=== PATIENT | male | born 1960 | race Caucasian/White ===

== ENCOUNTER 2021-11-02 07:29 | Emergency (ER) | payer OTHER, SELFPAY ==
[2021-11-02 07:31] VITALS: BP 157/90; PULSE 72; RESP 17; TEMP 36.3; O2SAT 98; BMI 28.7
--- NOTE | 2021-11-02 07:49 | CT_ITS ---
STUDY: CT ABDOMEN AND PELVIS WITH CONTRAST REASON FOR EXAM: Male, 61 years old. Rectal bleeding, hx chondrosarcoma resection RADIATION DOSAGE (If Supplied By Facility): CTDIvol = ( 16.82 ) mGy, DLP = ( 2627.41 ) mGycm TECHNIQUE: Transaxial images were obtained from the dome of the diaphragm to the symphysis pubis without oral contrast. IV 100mL Isovue-300 was administered. Sagittal and coronal images were reconstructed. Individualized dose optimization techniques were used for this CT. COMPARISON: Comparison is made with prior study dated 10/12/2012. FINDINGS: The visualized lung bases are unremarkable. The visualized portions of the heart are within normal limits. There is decreased attenuation of the liver consistent with steatosis. Stable 1 cm cyst in the midportion of the right lobe of the liver. Normal gallbladder and extrahepatic biliary system. Normal spleen. Normal pancreas. Normal bilateral adrenal glands. Normal right kidney. Normal left kidney. Normal visualized stomach. Normal small intestine. There are multiple colonic diverticula consistent with diverticulosis. The appendix is visualized and appears normal. There is scattered atherosclerotic calcification of the abdominal aorta, without a demonstrated aneurysm. Normal inferior vena cava. Normal retroperitoneum. The urinary bladder is seen in the upper medial aspect of the left thigh. There is diffuse wall thickening of the urinary bladder. Incidental note is made of a small left hydrocele. Heterogeneous appearance of the prostate. The prostate measures 4.7 cm x 4.8 cm. The patient is status post left hemipelvectomy. The left side of the bony pelvis as well as the proximal left femur have been resected. There is a stable left lateral abdominal wall hernia. CT/Abdomen/Pelvis W IV Cont ONLY IMPRESSION: Status post left nephrectomy with stable left lateral abdominal wall hernia. The urinary bladder is seen in the medial proximal aspect of the left thigh. Sigmoid diverticulosis. Electronically Signed: Jose Ervin MD at 9:00 EDT ,
--- NOTE | 2021-11-02 07:50 | EX.ED.DYSGE1 ---
HPI History of Present Illness Chief Complaint: GI Bleed Informant: patient Onset/Context/Timing Onset: Days (3) Context: Gradual Onset Timing: Intermittent Quality: BRB w/ clots Location: rectum Current Severity: Moderate Maximum Severity: Moderate Worsened by: n/a Relieved by: n/a Associated Symptoms Associated Symptoms: none Narrative Narrative: Patient presents with rectal bleeding with clots for the past couple days, this morning he passed a large clot, he was trying to pass it like he was having a bowel movement, suggesting to him that it was coming from further up. He feels nothing that indicates a hemorrhoid to him, no perianal pain. No abdominal pain, nausea, vomiting, symptoms of anemia/lightheadedness or weakness. No chest pain or shortness of breath. Never had this before. States he had a screening colonoscopy more than 10 years ago that was unremarkable from what he remembers. 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 He states this was 40 years ago. Since then he has had some issues having bowel movements, where sometimes he feels like he needs to go but it is difficult to get things out but he usually has no major issues. This is the first time he is ever had bleeding like this, he takes no antiplatelet or anticoagulant medications. Prior similar symptoms: No Recent Illness/Hospitalization: No [facility] Medical History (Updated 11/02/21 @ 09:[address] Umang Porter MD) Chondrosarcoma of left femur Hypertension Allergy/AdvReac Type Severity Reaction Status Date / Time No Known Allergies Allergy Verified 11/02/21 07:30 Social History Smoking Status: Unknown if ever smoked ROS ROS ED Constitutional Constitutional ED: Denies chills or fever(s) Eyes Eyes: Denies change in vision or diplopia ENT ENT ED: Denies rhinorrhea or sore throat Cardiovascular Cardiovascular: Denies chest pain or palpitations Respiratory/Chest Respiratory/Chest: Denies cough or dyspnea Gastrointestinal Gastrointestinal: Reports as per HPI and hematochezia; Denies abdominal pain, diarrhea, hematemesis, hemorrhoids, melena, nausea or vomiting Genitourinary Genitourinary ED: Denies dysuria or hematuria Musculoskeletal Musculoskeletal: Denies back pain or neck pain Integumentary Denies abscess or rash Neurologic Neurologic: Denies headache(s), paresthesias or weakness Psychiatric Psychiatric: Denies anxiety or suicidal thoughts EXAM Physical Exam Const Vital Signs: 11/02/21 07:31 11/02/21 08:47 Temperature 97.3 F L Temperature Source Temporal Pulse Rate 72 Pulse Rate [Lying] 61 Pulse Rate [Sitting (for 1 minute prior to obtaining)] 65 Pulse Rate [Standing (for 1 minute prior to obtaining)] 67 Respiratory Rate 17 Blood Pressure 157/90 H Blood Pressure [Lying] 126/70 H Blood Pressure [Sitting (for 1 minute prior to obtaining)] 125/82 H Blood Pressure [Standing (for 1 minute prior to obtaining)] 145/95 H Blood Pressure Mean 112 Blood Pressure Mean [Lying] 88 Blood Pressure Mean [Sitting (for 1 minute prior to obtaining)] 96 Blood Pressure Mean [Standing (for 1 minute prior to obtaining)] 111 Pulse Ox 98 Oxygen Delivery Method Room Air Positive well nourished and well developed General Appearance ED: well developed and NAD HEENT Reports moist mucous membranes normocephalic and atraumatic Eyes PERRL and EOMs intact bilaterally Neck full ROM and supple Resp normal respiratory effort and clear to auscultation bilaterally Cardio regular rate, regular rhythm and no murmurs Rate: Negative for tachycardic GI non-tender and non-distended Auscultation: normoactive bowel sounds Palpation: soft Back/Spine no CVA tenderness General Back: other FROM Extremity Extremity Narrative: Status post left hip disarticulation, otherwise extremity inspection normal General Extremety ED: Negative for edema, pulses abnormal or tenderness General Extremity: Negative for edema or pulses abnormal Neuro oriented x3, CN's II-XII intact bilaterally and no sensory deficits noted Sensorium / Orientation: awake and alert Motor Exam: strength 5/5 throughout Skin no rashes or lesions noted and no wounds MDM MDM MDM Narrative Medical decision making narrative: No records available on this patient including the colonoscopy that he states he had here 10 or more years ago. He has never been told he has diverticulosis. Primarily because I would like to know if he has that or if there are any anatomic issues that could be related to this related to his resection of the left hemipelvis due to his remote cancer, I obtained a CT of his abdomen/pelvis. It indeed shows diverticulosis, suspicious for the potential cause of his bleeding. The hernia that is noted on CT is I think simply a result of him having his left pelvis resected as a result of his remote cancer. He had a bowel movement here in the ER, it was basically all blood and quite a bit with some clots. His orthostatics are negative, his blood counts are good. He had a bowel movement here, it was brown stool surrounded on a small amount of blood no clots. He has been feeling fine. I attempted to talk to GI but Dr. Salazar is not available today. I spoke with Dr. Kyle who reviewed his CT and I spoke with him about his case, his recommendation for now would be to send him home on the compounded hydrocortisone/lidocaine suppositories that her pharmacy makes, which I called into our pharmacy for a 2-week supply, nightly. I discussed with the patient the possibility of this being diverticular bleeding but it is stable at this time, we will treat him empirically for internal hemorrhoids and proctitis, and if he has symptoms of anemia and worsening bleeding need to come back to the ER otherwise following up for further evaluation and possible colonoscopy. All questions were answered at bedside he is comfortable with that plan. Lab Data Attestation: I reviewed the patient's lab results. Labs: Laboratory Results - last 24 hr 11/02/21 11/02/21 08:00 08:00 WBC 4.9 RBC 5.20 Hgb 15.2 Hct 44.6 MCV 85.8 MCH 29.2 MCHC 34.1 RDW Std Deviation 40.6 RDW Coeff of Tessa 13.2 Plt Count 213 MPV 10.5 Immature Gran % (Auto) 0.200 Neut % (Auto) 66.7 Lymph % (Auto) 20.2 Mcclain % (Auto) 8.7 Eos % (Auto) 3.2 Baso % (Auto) 1.0 Absolute Neuts (auto) 3.3 Absolute Lymphs (auto) 1.00 Nucleated RBC % 0 Sodium 139 Potassium 3.7 Chloride 105 Carbon Dioxide 31.0 Anion Gap 3 L BUN 18 Creatinine 0.83 Estim Creat Clear Calc 96.50 Est GFR (MDRD) Af Amer 121 Est GFR (MDRD) Non-Af 100 BUN/Creatinine Ratio 21.7 H Glucose 114 H Calcium 9.4 Radiography Diagnostic Testing: Clinical Impression(s) from Imaging Studies Abdomen/Pelvis CT 11/02/21 07:49 IMPRESSION: Status post left nephrectomy with stable left lateral abdominal wall hernia. The urinary bladder is seen in the medial proximal aspect of the left thigh. Sigmoid diverticulosis. Electronically Signed: Jose Ervin MD at 9:00 EDT , Discharge Plan Triage Chief Complaint: GI Bleed ED Provider: Umang Porter Dx/Rx/DC Orders Clinical Impression: Acute lower gastrointestinal bleeding, Diverticulosis Instructions: ED Lower GI Bleeding (Stable), ED Diverticulosis Primary Care Provider: Care Physician,No Primary Referrals: Homero Kyle MD [STAFF PHYSICIAN] - (Call for follow-up appointment) FriendJoseph DO [STAFF PHYSICIAN] - (Gastroenterology, in case you need another GI contact) Care Physician,No Primary [Primary Care Provider] - Activity Restrictions/Additional Instructions: Prescription was called in for you at the [facility] retail pharmacy, pick it up before you go home. Do not take any aspirin or ibuprofen while you are having this bleeding as it could make it worse. Disposition Disposition: Home, Self Care
[2021-11-02 08:11] LABS: Absolute Neutrophil Count 3.3 X10^3/uL (2.0-7.7); Basophil# 0.05 X10^3/uL; Eosinophil# 0.16 X10^3/uL; Eosinophils% 3.2 % (0-5); Hematocrit 44.6 % (40-54); Hemoglobin 15.2 g/dL (13.0-16.5); Lymphocyte % 20.2 % (19-41); Mean Corp Hgb Conc 34.1 g/dL (32-36); Mean Corpuscular Hgb 29.2 pg (27.0-32.0); Mean Corpuscular Volume 85.8 fL (80-94); Mean Platelet Vol. 10.5 fl (6.2-12.0); Monocyte# 0.43 X10^3/uL; Monocyte% 8.7 % (0-10); NRBC Flagged by Analyzer 0 % (0-5); Neutrophil # 3.29 X10^3/uL (2.7-7.7); Neutrophil % 66.7 % (47-70); Platelet Count 213 K/mm3 (150-450); RBC Distribution Width CV 13.2 % (11.6-14.6); RBC Distribution Width SD 40.6 fl (35.1-43.9); White Blood Count 4.9 K/mm3 (4.4-11.0)
[2021-11-02 08:20] LABS: Anion Gap 3 (5-15); BUN 18 mg/dL (7-18); BUN/Creat Ratio 21.7 RATIO (10-20); Calcium,Total 9.4 mg/dL (8.5-10.1); Chloride 105 mmol/L (98-107); Creatinine, Serum 0.83 mg/dL (0.70-1.30); EST Glomerular Filtration Rate 100 mL/min (>60); Est Glom Filt Rate - Afr Amer 121 mL/min (>60); Glucose 114 mg/dL (74-106); Potassium 3.7 mmol/L (3.5-5.1); Sodium Level 139 mmol/L (136-145)
[2021-11-02 08:47] VITALS: BP 125/82; BP 126/70; BP 145/95; PULSE 61; PULSE 65; PULSE 67
--- NOTE | 2021-11-02 12:50 | CM.ED ---
SW Note Referral Source: Case Find Referral Reason: No Primary Care Physician (PCP) SW reviewed chart and noted that patient has no PCP. SW provided patient with list of [facility] and [facility] Physician List for reference. SW also provided patient with handout ?Where to go When?. No other issues or concerns voiced at this time. SW remains available for any additional needs. Plan: Provided patient with PCP information Kate BNADA
== END 2021-11-02 13:22 | disposition home or self-care (01) ==
PROVIDERS: Emergency Provider Emergency Medicine; Visit Provider Emergency Medicine
DX: K57.31 Diverticulosis of large intestine without perforation or abscess with bleeding (principal); Z89.612 Acquired absence of left leg above knee; I10 Essential (primary) hypertension; K64.8 Other hemorrhoids; Z85.830 Personal history of malignant neoplasm of bone
CPT/HCPCS: 74177; 80048; 85025; 96360; 96361; 99284; J7030; Q9967; A4216

== ENCOUNTER → 2023-05-16 | Outpatient (CLI) | payer OTHER, SELFPAY ==
--- NOTE | 2023-05-16 12:51 | MRI_ITS ---
ACR Level 3 findings have been noted. An addendum which confirms receipt of the report will follow. STUDY: MR PROSTATE GLAND/ PELVIS WITH T WITHOUT CONTRAST REASON FOR EXAM: Male, 62 years old. ELEVATED PSA, PSA 6.75 TECHNIQUE: Standardized fat and water weighted pulse sequences were obtained in all 3 orthogonal planes, pre-and post contrast administration. IV 18cc clariscan was administered for the contrast portion of the examination. COMPARISON: CT of abdomen and pelvis dated November 02, 2021 FINDINGS: Prostate gland volume/size: The left testicle was not seen on this study. The prostate gland is moderately enlarged measuring 6.78 x 5.89 cm and is diffusely heterogeneous and nodular in appearance. Anterior fibromuscular stroma: Within normal limits Peripheral zone: Thinned and diffusely heterogeneous bilaterally without a discrete nodule. Central zone: Diffusely heterogeneous and hyperplastic with intermixed solid and cystic lesions. Transitional zone: Diffusely heterogeneous and hyperplastic with intermixed solid low signal nodules intermixed with small cystic lesions. There are 2 focal and moderately enhancing nodules in the right and left side of the transitional zone, measuring 2.84 cm and 2.36 cm respectively. No demonstrated mixed pattern of bright and dark diffusion weighted and ADC map signal consistent with malignancy. There is diffuse enhancement of the hyperplastic parenchyma surrounding these predominate nodules throughout the prostate gland. Prostate capsule: Intact without evidence of a mass or nodule extending beyond the confines of the capsule. Seminal vesicles: Normal. Pelvic sidewall lymphadenopathy: No demonstrated pelvic sidewall lymphadenopathy Bony structures: Prior left hemipelvic bony surgical amputation/resection. Altered anatomy with loops of bowel and the bladder extending into the left lower pelvic and upper thigh region junction. Fatty atrophy is seen in the muscle fibers of this region. A small to moderate sized right testicular hydrocele is present. Mildly to moderately diffusely thickened bladder wall with mild trabeculation which could be related to a neurogenic bladder or chronic nonspecified cystitis. Normal visualized small intestine. Normal visualized colon. There is no pelvic fluid. There is no pelvic mass lesion or lymphadenopathy. Normal visualized pelvic arteries. No marrow edema or lytic or blastic lesions are seen in the remaining bony structures on the current study.. Normal abdominal wall. MRI/Pelvis W/WO Contrast IMPRESSION: 1. Diffusely heterogeneous and hyperplastic with intermixed solid low signal nodules intermixed with small cystic lesions throughout the transitional zones. There are 2 focal and moderately enhancing nodules in the right and left side of the transitional zone, measuring 2.84 cm and 2.36 cm respectively. No demonstrated mixed pattern of bright and dark diffusion weighted and ADC map signal consistent with malignancy. 2. PI-RADS 5: very high (clinically significant cancer is highly likely to be present) Reference information: Normal prostate tissue Benign prostatic hypertrophy cancer/tumor - low signal peripheral , transitional, and central zones malignancy appears as bright on DWI and low signal on ADC map Prostate imaging-reporting and data system (PI-RADS) PI-RADS 1: very low (clinically significant cancer is highly unlikely to be present) PI-RADS 2: low (clinically significant cancer is unlikely to be present) PI-RADS 3: intermediate (the presence of clinically significant cancer is equivocal) PI-RADS 4: high (clinically significant cancer is likely to be present) PI-RADS 5: very high (clinically significant cancer is highly likely to be present) PI-RADS X: component of exam technically inadequate or not performed Prostate malignancy distribution: Peripheral zone: 70-80% Transitional zone: 10-20% Central zone: 5% or less Electronically Signed: Terrell Doss MD at 11:17 EST ,
--- NOTE | 2023-05-16 13:15 | RAD_ITS ---
STUDY: X-RAY - ORBITS REASON FOR EXAM: Male, 62 years old. MRI clearance TECHNIQUE: 2 view(s) of the orbits were obtained. COMPARISON: None. FINDINGS: Normal bilateral orbits without a metallic orbital foreign body. Normal visualized facial bones. Normal paranasal sinuses. The soft tissue structures are unremarkable. RAD/Orbits for Foreign Body IMPRESSION: No demonstrated metallic orbital foreign body. The patient is cleared for an MRI examination. Electronically Signed: Jose Ervin MD at 13:27 EST ,
[2023-05-16 14:30] LABS: CREATININE FINGERSTICK < 1.0 mg/dL (0.70-1.30); EGFR FINGERSTICK > 60.0000 mL/min (>60)
== END | disposition home or self-care (01) ==
PROVIDERS: Referring Provider Urology; Visit Provider Urology
DX: R97.20 Elevated prostate specific antigen [PSA] (principal)
CPT/HCPCS: 70030; 72197; A9575

== ENCOUNTER → 2023-06-10 | Outpatient (CLI) | payer OTHER, SELFPAY ==
--- NOTE | 2023-06-10 | PROSBIL_PTH ---
PATHOLOGY RESULTS PATIENT: INOCENTE MONTELONGO LOC: [facility] U#:[id number] AGE/SX: 62/M ROOM: RE06/10/[address]: Dr. Lukasz Villar MD : 1960 BED: DIS: 06/10/2023 SPEC #: [id number] RECD: 06/13/23 07:31 STATUS: ALCIDES GAGE #: [id number] INDRA: 06/10/23 00:[address]: Lukasz Villar DEPT: SURGICAL PATHOLOGY RECD BY: Shelby Polk ENTERED: 06/13/23 07:32 SP TYPE: PROST BX KENDELL DR: ASHLEY Tissues: PROSTATE RIGHT PROSTATE RIGHT PROSTATE RIGHT PROSTATE LEFT PROSTATE LEFT PROSTATE LEFT Procedures: PROSTATE BX HEADER OPERATION: Bilateral prostate biopsy PRE-OP DIAGNOSIS: Elevated PSA TISSUE SUBMITTED: A - Right base, B - Right mid, C - Right apex, D - Left base, E - Left mid, F - Left apex MICROSCOPIC DIAGNOSIS A. Right prostate, base, core biopsy: Prostatic tissue, negative for malignancy. B. Right prostate, mid, core biopsy: Prostatic tissue, negative for malignancy. Focal mild chronic inflammation. C. Right prostate, apex, core biopsy: Prostatic tissue, negative for malignancy. Focal basal cell hyperplasia and calcification. D. Left prostate, base, core biopsy: Prostatic tissue, negative for malignancy. E. Left prostate, mid, core biopsy: Prostatic tissue, negative for malignancy. F. Left prostate, apex, core biopsy: Prostatic tissue, negative for malignancy. Focal mild chronic inflammation and minimal acute inflammation. SJ:jayne 06/14/2023 MICROSCOPIC DESCRIPTION Slides are reviewed. GROSS DESCRIPTION A - Received is one container designated prostate, right base. The specimen consists of two elongated fragments of light narvaez-white soft tissue each measuring 1.5 cm in length and 0.1 cm in diameter. The specimen is totally submitted in one cassette. B - Received is one container designated prostate, right mid. The specimen consists of two elongated fragments of light narvaez-white soft tissue each measuring 1.5 cm in length and 0.1 cm in diameter. The specimen is totally submitted in one cassette. C - Received is one container designated prostate, right apex. The specimen consists of three elongated fragments of light narvaez-white soft tissue measuring 1.4 to 1.7 cm in length and 0.1 cm in diameter. The specimen is totally submitted in one cassette. D - Received is one container designated prostate, left base. The specimen consists of two elongated fragments of light narvaez-white soft tissue each measuring 0.5 cm in length and 0.1 cm in diameter. The specimen is totally submitted in one cassette. E - Received is one container designated prostate, left mid. The specimen consists of two elongated fragments of light narvaez-white soft tissue measuring 1.5 and 1.7 cm in length and 0.1 cm in diameter. The specimen is totally submitted in one cassette. F - Received is one container designated prostate, left apex. The specimen consists of two elongated fragments of light narvaez-white soft tissue measuring 2.0 and 2.5 cm in length and 0.1 cm in diameter. The specimen is totally submitted in one cassette. / SJ:rg 06/13/2023 TC:3 CPT: 39840 x6
== END | disposition home or self-care (01) ==
LOC: LABSPEC 15:09
PROVIDERS: Referring Provider Urology; Visit Provider Urology
DX: N40.0 Benign prostatic hyperplasia without lower urinary tract symptoms (principal); R97.20 Elevated prostate specific antigen [PSA]
CPT/HCPCS: 88305; G0416